=== PATIENT | male | born 1945 | race Caucasian/White ===

== ENCOUNTER 2021-03-31 08:59 | Outpatient (CLI) | payer MEDICARE ==
[2021-03-31 17:30] LABS: SARS-CoV-2 PCR by NAA Not Detected (NotDetected)
== END 2021-03-31 09:00 | disposition home or self-care (01) ==
LOC: CSHLAB 08:59
PROVIDERS: ATTEND Internal Medicine Gastroenterology
DX: Z20.822 Contact with and (suspected) exposure to COVID-19 (principal); K63.5 Polyp of colon
CPT/HCPCS: U0003; U0005

== ENCOUNTER 2021-04-03 06:24 | Day surgery (SDC) | payer MEDICARE ==
[2021-03-28 13:56] VITALS: BMI 38.0
[2021-04-03] MEDS ORDERED: Lidocaine 1% MPF 2 ML VIAL ONE (07:00)
[2021-04-03] MEDS ORDERED: PROPOFOL 80 ML ONE (07:01)
[2021-04-03] MEDS ORDERED: Fentanyl 100 MCG/2 ML VIAL ONE (07:41)
[2021-04-03] MEDS ORDERED: Lidocaine 1% PF 5 ML VIAL ONE (08:36)
== END 2021-04-03 08:40 | disposition home or self-care (01) ==
LOC: CSHSDC 06:24
PROVIDERS: ATTEND Internal Medicine Gastroenterology
PROC: 0DBN8ZZ Excision of Sigmoid Colon, Via Natural or Artificial Opening Endoscopic (ICD-10-PCS; principal; 2021-04-03)
DX: Z12.11 Encounter for screening for malignant neoplasm of colon (principal); K63.5 Polyp of colon; K57.30 Diverticulosis of large intestine without perforation or abscess without bleeding; K64.9 Unspecified hemorrhoids
CPT/HCPCS: 88305; J2704; J3010